=== PATIENT | male | born 1935 | race Two or more races ===

== ENCOUNTER 2017-10-11 08:44 | Outpatient (CLI) | payer OTHER ==
[~2017-10-11 08:44] MED LIST: ACETAMINOOPHEN-1 TAB PO; CIPROFLOXACIN750 MG PO; CLONAZEPAM1 MG PO; DOCUSATE SODIU100 MG PO; GABAPENTIN800 MG PO; LOSARTAN-HCTZ1 EAC1 PO; NORVASC5 MG PO; PERCOCET 5/3251 TAB PO; SEROQUEL50 MG PO
== END 2017-10-11 08:49 | disposition home or self-care (01) ==
LOC: RAD 501 08:44
DX: M51.36 Other intervertebral disc degeneration, lumbar region (principal); Z98.1 Arthrodesis status